=== PATIENT | male | born 1955 | race Caucasian/White ===

== ENCOUNTER 2016-10-22 20:46 | Emergency (ER) | payer BC ==
[~2016-10-22] VITALS: Ht 180.3 cm; Wt 87.6 kg
[~2016-10-22 20:46] MED LIST: ALBUAER
[2016-10-22 20:50] VITALS: TEMP 36.8; Ht 180.3 cm; Wt 87.6 kg
[2016-10-22] MEDS ORDERED: FLUT1SPR12 NAE (21:39)
[2016-10-22] MEDS ORDERED: SYMIN (21:39)
[2016-10-22] MEDS ORDERED: ASPITAB71 PO (21:39)
[2016-10-22] MEDS ORDERED: MULTCAP33 PO (21:39)
[2016-10-22] MEDS ORDERED: ASPITAB44 PO (21:39)
[2016-10-22] MEDS ORDERED: VNTHFA/IN INH (21:39)
[2016-10-22] MEDS ORDERED: ASPI325T45 PO (21:39)
[2016-10-22] MEDS ORDERED: ONDANSETRON INJ 2 MG/ML 2 ML VIAL IV STA (21:57)
[2016-10-22] MEDS ORDERED: SODIUM CHLORIDE 0.9% 1000ML 1,000 ML IV STA (21:57)
[2016-10-22] MEDS ORDERED: KETOROLAC TROMETHAMINE 30 MG/ML VIAL IV STA (21:57)
[2016-10-22 22:11] LABS: BASO % 0.1 %; BASO ABS # 0.01 K/uL (0-0.2); COMPLETE YES; EOS % 2.4 %; HEMATOCRIT 42.4 % (42-52); IG% 0.5 %; LYMPH % 27.4 %; LYMPH ABS # 2.02 K/uL (1.2-3.4); MEAN CELL VOLUME 88.1 fL (80-100); MEAN CORPUSCULAR HEMOGLOBIN 29.5 pg (25-34); MEAN CORPUSCULAR HGB CONC 33.5 g/dl (32-36); MEAN PLATELET VOLUME 12.1 fL (7.4-10.4); NEUT % 55.6 %; PLATELET COUNT 202 K/uL (130-400); RED BLOOD COUNT 4.81 M/uL (4.7-6.1); WHITE BLOOD COUNT 7.38 K/uL (4.8-10.8)
--- NOTE | 2016-10-22 22:17 | DIAGNOSTIC IMAGING REPORT ---
CHEST ONE VIEW PORTABLE HISTORY: Atypical CHEST PAIN COMPARISON: None. FINDINGS: No focal lung consolidations to suggest pneumonia. No evidence for pulmonary edema. No pneumothorax. Trace left pleural effusion. The heart is borderline enlarged. Tortuous thoracic aorta. IMPRESSION: Trace left pleural effusion. Electronically signed by: Chance Anthony M.D. 10/22/2016 10:16 PM Dictated Date/Time: 10/22/2016 10:15 PM
[2016-10-22 22:30] LABS: BUN/CREATININE RATIO 15.2 (10-20); CREATININE 0.96 mg/dl (0.60-1.40); POTASSIUM 3.7 mmol/L (3.5-5.1)
[2016-10-22 22:38] LABS: CALCIUM 8.6 mg/dl (8.5-10.1)
[2016-10-22 23:21] VITALS: BP 119/71; PULSE 58; O2SAT 100
--- NOTE | 2016-10-23 04:07 | EMERGENCY ROOM VISIT NOTE ---
ED Visit Note First contact with patient: 21:36 Chief Complaint: Chest pain. History of Present Illness: Mr. Palma is a 61 year-old white male who ambulates into the ED accompanied by his complaining of chest pain. Historically patient reports no previous history of coronary artery disease, he has risk factors of hypertension but not diabetes or dyslipidemia or smoking. Additionally he his mother had a first cardiac event at age 94. Patient reports throughout the weekend he was doing yard outside the house including gardening and lifting and moving of stone. Then late last evening approximately 24 hours before he arrived in the emergency department he reports he was at rest and developed a gradual onset of chest pain. Since that time his pain has been constant. He describes his pain as an achy sensation. He places it in the midsternal area and the left anterior chest. The pain is nonradiating. The pain worsens with deep inspiration. He rates his discomfort 5/10. He has not identified any alleviating factors related to the pain. He has taken aspirin, Alejandra- [place] sinus medication and a migraine tablet of aspirin/acetaminophen/ caffeine without relief of his symptoms. Associated with his pain he reports he has been mildly lightheaded and he is having a bifrontal headache. He describes his headache as a pressure sensation. This is not the worst headache of his life. He rates this discomfort 4.5/10. The pain is nonradiating. He has not identified any aggravating or alleviating factors related to this pain. He denies any associated fevers, chills, sweats, skin eruptions, skin color changes, upper respiratory tract symptoms, wheezing, cough, shortness of breath , orthopnea, dependent edema, previous clots, claudication, cramping, recent surgery/inactivity/extended travel, abdominal pain, nausea, vomiting, diarrhea, constipation, rectal bleeding, black/tarry stools, urinary symptoms, back/flank pain. Review of Systems: As noted above in history of present illness. All body systems were reviewed and found to be negative as noted above. Past Medical History: As previously noted and asthma. Current Medications: Medications Dose Route/Sig Max Daily Dose Days Date Category Migraine Relief (Bivfnsp-Tjwwiasbrtncb-Sobclhdj) 1 Tab Tab 1 Tab PO DAILY PRN 10/22/16 Reported Alejandra-[place] (Aspirin Effervescent) 1 Tab Tab 1 Tab PO DAILY PRN 10/22/16 Reported Aspirin 325 Mg Tab 325 Mg PO DAILY PRN 10/22/16 Reported Preservision Areds (Multiple Vitamins W/ Minerals) 1 Cap Cap 1 Cap PO BID 10/22/16 Reported Flonase Allergy Relief Ch (Fluticasone Propionate (Nasal)) 50 Mcg/Act Spr 1 Orange STANISLAW BID 10/22/16 Reported Symbicort 160-4.5 Mcg/Act (Budesonide/Formoterol Fumarate) Unknown Strength Aero Unknown Dose 10/22/16 Reported Ventolin Hfa (Albuterol) 200 Puffs/49903 Mcg Aers 1 Puffs INH BID 10/22/16 Reported Allergies to Medications: Patient denies. Social History: Patient is currently employed; he lives with his and feels safe in his home environment; he denies tobacco use. Physical Examination: Vital Signs: Date Time Temp Pulse Resp B/P (MAP) Pulse Ox O2 Delivery O2 Flow Rate FiO2 10/22/16 23:21 58 18 119/71 100 10/22/16 21:19 99 Room Air 10/22/16 20:50 36.8 63 19 124/64 97 Room Air GENERAL: 61-year-old male in mild distress due to pain and symptoms, nontoxic- appearing, afebrile and hemodynamically stable. NEUROLOGICAL: Awake, alert and oriented to person, place and time. Answering questions appropriately and following commands. Normal gait. Good hand eye coordination. SKIN: Warm, dry and pink. No soft tissue eruptions or trauma noted. HEENT: Atraumatic and normocephalic. PERRLA. Sclera white and conjunctiva pink. Oral cavity moist and pink. Pharynx is nonerythematous or edematous. Speech normal. No lymphadenopathy. Trachea midline. No jugular venous distention. BACK: No tenderness over the bony spine. No CVA tenderness. THORAX: Lungs sounds are clear to auscultation and equal bilaterally with symmetrical chest wall. No wheezing, rales or rhonchi. No crepitus, tenderness , subcutaneous air or deformities noted. HEART: Regular rate and rhythm. No gallops, rubs or murmurs are appreciated. No lifts, heaves or thrills. PMI is not displaced. ABDOMEN: Flat, soft and nontender. Positive bowel sounds in all quadrants. No guarding, rigidity or organomegaly. EXTREMITIES: Moves all extremities well on command and with purpose. All distal neurovascular statuses are intact and equal bilaterally. No dependent edema or calf tenderness/cords. ED Course: Patient is assessed as noted above. Laboratory Testing: Test 10/22/16 21:50 10/22/16 22:03 Range/Units White Blood Count 7.38 4.8-10.8 K/uL Red Blood Count 4.81 4.7-6.1 M/uL Hemoglobin 14.2 14.0-18.0 g/dL Hematocrit 42.4 42-52 % Mean Corpuscular Volume 88.1 80-100 fL Mean Corpuscular Hemoglobin 29.5 25-34 pg Mean Corpuscular Hemoglobin Concent 33.5 32-36 g/dl Platelet Count 202 130-400 K/uL Mean Platelet Volume 12.1 7.4-10.4 fL Neutrophils (%) (Auto) 55.6 % Lymphocytes (%) (Auto) 27.4 % Monocytes (%) (Auto) 14.0 % Eosinophils (%) (Auto) 2.4 % Basophils (%) (Auto) 0.1 % Neutrophils # (Auto) 4.10 1.4-6.5 K/uL Lymphocytes # (Auto) 2.02 1.2-3.4 K/uL Monocytes # (Auto) 1.03 0.11-0.59 K/uL Eosinophils # (Auto) 0.18 0-0.5 K/uL Basophils # (Auto) 0.01 0-0.2 K/uL RDW Standard Deviation 42.9 36.4-46.3 fL RDW Coefficient of Variation 13.2 11.5-14.5 % Immature Granulocyte % (Auto) 0.5 % Immature Granulocyte # (Auto) 0.04 0.00-0.02 K/uL Sodium Level 141 136-145 mmol/L Potassium Level 3.7 3.5-5.1 mmol/L Chloride Level 109 98-107 mmol/L Carbon Dioxide Level 26 21-32 mmol/L Anion Gap 6.0 3-11 mmol/L Blood Urea Nitrogen 15 7-18 mg/dl Creatinine 0.96 0.60-1.40 mg/dl Est Creatinine Clear Calc Drug Dose 86.0 ml/min Estimated GFR () 98.5 Estimated GFR (Non- 85.0 BUN/Creatinine Ratio 15.2 10-20 Random Glucose 96 70-99 mg/dl Calcium Level 8.6 8.5-10.1 mg/dl Total Bilirubin 0.5 0.2-1 mg/dl Direct Bilirubin 0.1 0-0.2 mg/dl Aspartate Amino Transf (AST/SGOT) 16 15-37 U/L Alanine Aminotransferase (ALT/SGPT) 26 12-78 U/L Alkaline Phosphatase 95 45-117 U/L Total Protein 7.1 6.4-8.2 gm/dl Albumin 3.5 3.4-5.0 gm/dl Lipase 141 73-393 U/L Bedside Troponin I < 0.030 0-0.045 ng/ml Chest X-Ray: Was read by myself and the radiologist showing no acute infiltrates , effusions. No pneumothorax. Trace left pleural effusion. Heart silhouette is enlarged. Torturous thoracic aorta was noted. EKG: Was read by myself and reviewed with Dr. Capps; shows normal sinus rhythm with a ventricular rate of 65 bpm. Marked sinus arrhythmia. No acute ST changes indicating ischemia, injury or infarction. This was compared to a previous EKG from November 2011 there is mild flattening of the T-wave in leads 3 and aVF but there is no acute ischemic changes consistent with infarction. Patient was hydrated with normal saline and he received 30 mg of Toradol IV and was offered Zofran and refused. Patient was reassessed multiple times during his stay in the emergency department. Patient's case was reviewed with Dr. Capps; we agreed on diagnostic approach, treatment, disposition and plan. Patient was educated about today's findings and instructed on his treatment plan ; he verbalizes understanding and agreement with this plan. Clinical Impression: Noncardiac chest pain. Headache. Decision-Making: Initially my differential diagnosis I considered acute coronary syndrome, thoracic aneurysm, pneumothorax, pneumonia, musculoskeletal disorder, pulmonary embolism and other causes. Disposition: Patient discharged home in stable condition accompanied by his ; prior to departure he was reassessed and subjectively reported he was feeling slightly better and rated his overall discomfort 4/10. He felt his headache was much better and he only had mild relief of his chest discomfort. Plan: Patient was encouraged use ibuprofen or acetaminophen as needed for pain. Patient was encouraged to rest for the next few days and avoid strenuous activity. Patient was encouraged to stay well-hydrated. Patient was encouraged to contact his family physician in the morning and inform them of today's ED visit and request follow-up care and treatment for reevaluation. Patient was encouraged return the ED for worsening/uncontrolled chest pain, shortness of breath, vomiting, fevers or any new/concerning symptoms.
== END 2016-10-22 23:21 | disposition home or self-care (01) ==
LOC: C.EDB 20:47 → C.EDA 23:21
DX: R07.9 Chest pain, unspecified (principal); R51 Headache; J45.909 Unspecified asthma, uncomplicated

== ENCOUNTER 2018-08-17 07:02 | Observation (INO) ==
[2018-08-17] MEDS ORDERED: HEPARIN (PORCINE) 1000 UNIT/ML 10 ML (CATH LAB USE ONLY) ONE (08:26)
[2018-08-17] MEDS ORDERED: MIDAZOLAM HCL 1 MG/ML 2ML VIAL ONE (08:26)
[2018-08-17] MEDS ORDERED: NITROGLYCERIN/D5W 100MCG/ML 20ML SYR ONE (08:26)
[2018-08-17] MEDS ORDERED: fentaNYL citrate 100 MCG/2 ML VIAL ONE (08:26)
[2018-08-17] MEDS ORDERED: NiCARDipine HCL INJ 2.5 MG/ML 10 ML AMP ONE (08:26)
--- NOTE | 2018-08-17 08:49 | History & Physical Bridge Note ---
Date of Service August 17, 2018 History & Physical Bridge Note I have examined the patient, reviewed the History & Physical and in the interval since the performance of the History & Physical I have noted the following changes of clinical significance: no changes noted
--- NOTE | 2018-08-17 08:50 | Pre Anesthesia Assessment ---
Date of Service August 17, 2018 Pre Sedation Assessment Vital Signs Temp Pulse Resp BP Pulse Ox 08/17/18 07:30 36.7 C 59 L 18 134/85 96 Cardiovascular RRR, no murmur, no edema Respiratory normal respiratory effort, lungs clear to auscultation Pre-Sedation Airway Assessment Smoking Status: Never smoker Hx Sleep Apnea: No Hx Difficult Intubation: No Short, Thick Neck: No Thyromental Distance: > or= 3.5 Finger Breadths Oral Cavity: + WNL Mallampati Class: III Procedure Planning Contraindications for Sedation: none Current Medications Reviewed: Yes Notes The planned sedation has been discussed with the patient. Informed Consent was obtained. I have identified the patient, determined the appropriateness of sedation and have assessed the patient immediately prior to the procedure. All medicine(s) and interventions are by my order.
[2018-08-17] MEDS ORDERED: CLOPIDOGREL BISULFATE 300 MG TAB ONE (10:27)
[2018-08-17] MEDS ORDERED: SODIUM CHLORIDE 0.9% 1000ML 1,000 ML IV SCH (10:45)
[2018-08-17] MEDS ORDERED: ONDANSETRON INJ 2 MG/ML 2 ML VIAL IV PRN (10:45)
--- NOTE | 2018-08-17 10:52 | Post Anesthesia Assessment ---
Date of Service August 17, 2018 Post Sedation Assessment Vital Signs Temp Pulse Resp BP Pulse Ox 08/17/18 10:45 54 L 20 124/71 100 08/17/18 07:30 36.7 C 59 L 18 134/85 96 Recovery Score Activity: Moves 4 extremities Respiration: Deep Breath/Cough Circulation: +/-20% PreAnes Value Consciousness: Fully Awake Oxygen Saturation: O2 needed for >90% Discharge Sedation Level of Care: Fast Track Phase II Post Sedation Plan On clinical assessment, the patient appears to have tolerated the sedation without complications. Patient is recovering as anticipated. Patient will continue to be monitored by nursing and may be discharged when sedation discharge criteria are met per below protocol. Upon Completions of procedure and additional 15 minutes continue every 5 minute vital signs and the P.A.R. score; then discharge to a Phase I or Fast Track to Phase II per the following guidelines: * Discharge Patient to appropriate Phase II area if PAR is 8 or greater or return to pre- procedure baseline. The post - procedure orders will be as directed. * If PAR score is less than 8 or not return to pre-procedure baseline then patient will follow Phase I monitoring till PAR is reached for Phase II. The Phase I may be done in procedure room or may call to secure a Phase I area. * If naloxone or flumazenil are used for reversal, hold in Phase I for continued monitoring from when last reversal dose was given for a minimum of 60 minutes or longer pending the nurse and/or physician discretion of patient condition before discharge to Phase II. Please call the Sedation Physician to re-evaluate and complete post-note for discharge to Phase II area. Do NOT discharge from procedure sedation or Phase 1 until post- sedation evaluation note is complete by procedure /sedation MD Sedation Discharge Instructions to be given to the patient at discharge to home.
--- NOTE | 2018-08-17 10:55 | Cardiac Catheterization ---
Cardiac Cath Procedure Full Procedure Date August 17, 2018 Pre-Procedure Diagnosis Pre-Procedure Diagnosis: Angina and Positive Stress Test AUC Score AUC Score: 7 Post-Procedure Diagnosis Post-Procedure Diagnosis: Severe CAD and Successful PCI Procedure(s) Performed Procedure(s) Performed: Coronary Angiography and Drug Eluting Stent Lather Apprentice Bro Nieto MD Hall Coordinator(s) Yenifer Estimated Blood Loss Estimated Blood Loss: 15 Medication(s) Medication(s): Clopidogrel, Fentanyl, Heparin, Lidocaine 1%, Nicardipine and Nitroglycerin Summary of Findings Indication: Unstable angina, positive stress test with LAD distribution ischemia Access: 6 Fr right radial artery Catheters: [place], JR4, AR-1; EBU 3.5 guide Findings: LM -angiographically normal LAD -moderate caliber, proximal mid segment luminal irregularities, 100% mid occlusion after first diagonal and second septal. Apical LAD fills via left to left collaterals, apical to mid LAD fills via [id number] collaterals with short segment of occlusion. Circumflex -large caliber vessel, dominant mid segment luminal irregularities RCA -small, nondominant, provides right to left collaterals to LAD via acute marginal -- PCI -- Antithrombotic therapy: Heparin, clopidogrel Procedure: Left main cannulated with EBU 3.5 Long whisper wire passed across mid LAD occlusion into distal vessel Distal intraluminal position confirmed via injection through over the wire balloon Whisper wire exchanged for mailman wire. Mid LAD lesion predilated with 1.5, 2.0 and 2.5 compliant balloons Pro-water wire placed into diagonal Dilated lesion stented with 2.75 x 33 mm Xience Marjorie CARLOS Pro-water wire removed, replaced with instructor pilot 50 wire. Stent post-dilated with 3.5 noncompliant balloon IC vasodilators administered for spasm Post procedure INGRID 3 flow, stent well expanded. 70% ostial stenosis of first diagonal but INGRID-3 flow. Attempted to pass 1.5 balloon across stent struts into the diagonal but did not pass easily. In the setting of INGRID-3 flow in diagonal decision to forego further attempts to further dilate. Arterial Closure: TR band Summary: 1. Severe single vessel coronary artery disease -100% acute on chronic mid LAD occlusion with left to left and [id number] collaterals 2. Successful PCI of mid LAD with single drug-eluting stent (2.75 x 33 Xience Marjorie, postdilated with 3.5 NC). Recommendations: To PCU for continued monitoring Loaded with clopidogrel 600 mg in cath Continue dual-antiplatelet therapy for at least 12 months. Continue statin, and ASCVD risk factor modification Consult cardiac Rehab Hemodynamics Rest Ao:: 117/60/88 Final Ao: 114/72/92 LV: -- Recommendations Recommendations: PCI without planned CABG Specimens Specimens: None Radiation Exposure (mGy) 5058 Contrast (mls) 160 Fluids (cc crystalloids) Fluids (cc crystalloids): 170 Drains Drains: none Anesthesia moderate Procedural Complication(s) None Disposition PCU ACC Data: Foundry Hand Cardiac Status Clinical evaluation leading to the procedure CAD Presenation: Positive Stress Test and Unstable angina Anginal Classification: CCS III Heart Failure: No Cardiogenic Shock within 24 Hours: No Cardiac Arrest within 24 Hours: No Imaging Studies Past 6 Months: Yes Stress Studies Past 6 Months: Yes Stress Echocardiogram: Yes - Positive and Risk/Extent of Ischemia (High) Diagnostic Physicians Name: Bro Nieto MD Status: Elective Closure Device Percutaneous Entry Location: Radial Closure Device: Radial Band Recommendations: PCI without planned CABG PCI Indication: + Stress Test and Unstable Angina Lesion Segment Name: mid LAD Culprit Artery: Yes Stenosis Prior to Rx (%): 100 Chronic Total Occlusion: Yes IVUS: No FFR: No Pre-Procedure INGRID Flow: 0 Previously Treated Lesion: No Lesion Complexity: High/C Lesion Length (mm): 28 Thrombus Present: Yes Bifurcation Lesion: Yes Guidewire Across Lesion: Stenosis Post-Procedure (%): 0 Post-Procedure INGRID Flow: 3 Devices(s) Deployed: Yes Yes Intraprocedure Events Significant Disection: No Perforation: No
[2018-08-17] MEDS: ACETAMINOPHEN 325 MG TAB PO PRN ×2 (12:32→17:12)
[2018-08-17] MEDS: MONTELUKAST SODIUM 10 MG TABLET PO SCH ×2 (21:09→21:13)
[2018-08-17] MEDS: ALBUTEROL HFA 8 GM INHALER INH SCH (21:10)
[2018-08-18 05:10] LABS: Basophils # (auto) 0.01 K/uL (0-0.2); Basophils % (auto) 0.1 %; Eosinophils # (auto) 0.11 K/uL (0-0.5); Eosinophils % (auto) 1.3 %; Hematocrit (blood only) 42.4 % (42-52); Hemoglobin 14.2 g/dL (14.0-18.0); Immature Granulocytes # (auto) 0.02 K/uL (0.00-0.02); Immature Granulocytes % (auto) 0.2 %; Lymphocytes # (auto) 1.42 K/uL (1.2-3.4); Lymphocytes % (auto) 16.6 %; Mean Corpuscular Hgb Conc 33.5 g/dL (32-36); Mean Corpuscular Volume 89.1 fL (80-100); Monocytes # (auto) 0.91 K/uL (0.11-0.59); Monocytes % (auto) 10.7 %; Neutrophils # (auto) 6.06 K/uL (1.4-6.5); Neutrophils % (auto) 71.1 %; Platelet Count 202 K/uL (130-400); RDW Coefficient of Variation 13.3 % (11.5-14.5); RDW Standard Deviation 43.5 fL (36.4-46.3); Red Blood Count 4.76 M/uL (4.7-6.1); White Blood Count 8.53 K/uL (4.8-10.8)
[2018-08-18 05:32] LABS: BUN Creatinine Ratio 14.4 (10-20); Calcium 8.4 mg/dl (8.5-10.1); Creatinine Clr Calc Pharmacy 93.6 ml/min; Est GFR (Non-African American) 92.3; Potassium 4.1 mmol/L (3.5-5.1)
[2018-08-18] MEDS: ALBUTEROL HFA 8 GM INHALER INH SCH (08:40)
[2018-08-18] MEDS ORDERED: FLUTICASONE PROPIONATE NA SPR 16 GM BTL NAE SCH (09:00)
[2018-08-18] MEDS ORDERED: ATORVASTATIN 40 MG TAB PO SCH (09:00)
[2018-08-18] MEDS ORDERED: CLOPIDOGREL BISULFATE 75 MG TAB PO SCH (09:00)
[2018-08-18] MEDS ORDERED: ASPIRIN 81 MG ECTAB PO SCH (09:00)
[2018-08-18] MEDS ORDERED: CEROVITE ADV FORMULA TAB PO SCH (09:00)
--- NOTE | 2018-08-18 22:48 | Discharge Summary ---
Date of Service August 18, 2018 Admission HPI Per Admitting Provider Mr. Palma presented to [facility] for cardiac catheterization due to accelerating angina. Patient followed by Dr. Holman for his cardiac care. More recently patient had noticed chest pressure radiating to bilateral arm pits with exertion, for example walking up hills on recent trip to [facility]. Underwent stress test which reportedly suggest LAD distribution ischemia. Specialty Data Cardiology Cardiac catheterization/PCI: 1. Severe single vessel coronary artery disease -100% acute on chronic mid LAD occlusion with left to left and [id number] collaterals 2. Successful PCI of mid LAD with single drug-eluting stent (2.75 x 33 Xience Marjorie, postdilated with 3.5 NC). Discharge Data Consultations 08/17/18 10:48 Consult Cardiac Rehabilitation Routine Procedures Performed Operation Date: 08/17/18 08:00 Actual Procedures p Cineradiography w/Routine Exam - Keshav Nieto MD p Cath, Coronaries ONLY (no LV) - Ronen Nagel MD s Drug Eluting Stent SGl Vessel - Ronen Nagel MD Hospital Course (1) Occlusion of left anterior descending (LAD) artery: Patient underwent cardiac catheterization via right radial artery. Was found to have severe single vessel disease with a 100% acute on chronic mid LAD occlusion with left to left and more notable right to left collaterals from his nondominant RCA. He underwent PCI to LAD with eventual placement of a single drug-eluting stent. Moderate caliber first diagonal narrowed post stent placement but INGRID-3 flow and no other apparent procedural complications. Patient admitted to telemetry service for further observation overnight. During hospitalization he was hemodynamically and electrically stable. Had no recurrent chest pain. On day of discharge was feeling well and discharged home on doing to platelet therapy with aspirin, clopidogrel. He did have evidence of a hematoma at right radial artery access site. Distal pulses and sensation intact in right upper extremity. We will follow-up with Dr. Holman as scheduled. Discharge Instructions Home Medications ALBUTEROL HFA (VENTOLIN HFA) 1 puff INHALATION BID #1 inhaler 10/22/16 [History] Fluticasone Propionate (Nasal) (Flonase Allergy Relief Ch) 1 spray STANISLAW BID #0 10/22/16 [History] MULTIPLE VITAMINS W/ MINERALS (PRESERVISION AREDS) 1 cap PO BID #0 10/22/16 [History] aspirin [Aspir-Low] 1 tab PO DAILY 08/17/18 [History Confirmed 08/17/18] montelukast 10 mg PO PM 08/17/18 [History Confirmed 08/17/18] atorvastatin 80 mg PO DAILY 30 Days #60 tab 08/18/18 [Rx] clopidogrel 75 mg PO QAM 30 Days #30 tab 08/18/18 [Rx]
== END 2018-08-18 10:21 | disposition home or self-care (01) ==
LOC: CC 07:02 → INTOOBSV 11:08 → 1E 11:08
PROC: CLB.CCO (2018-08-17 08:00)